=== PATIENT | female | born 1965 | race Caucasian/White ===

== ENCOUNTER → 2020-11-25 | Outpatient (CLI) | payer OTHER ==
[~2020-11-25] MED LIST: CORGARD 40MG TA40 MG PO; COZAAR 50MG TAB50 MG PO; ECOTRIN81 MG PO; GLUCOPHAGE1000 MG PO; HYDROCHLOROTH12.5 MG PO; ICAPS AREDS SO1 EACH PO; LANTUS SOL100 UNIT/1 SQ; LEVAQUIN750 MG PO; OZEMPIC SQ; PROZAC40 MG PO; TRAMADOL HCL50 MG PO
[2020-11-25 13:06] LABS: HEMOGLOBIN 14.7 gm/dl (12.3-15.3); RED BLOOD COUNT 5.16 M/UL (4.00-5.10); WHITE BLOOD COUNT 7.5 K/UL (4.5-11.0)
[2020-11-25 13:31] LABS: BUN/CREATININE RATIO 20 (0-10)
[2020-11-26 09:11] LABS: VITAMIN D, 25-HYDROXY 30.9 ng/mL (30.0-100.0)
[2020-11-26 11:11] LABS: PROGESTERONE 0.1 ng/mL (.); TESTOSTERONE, SERUM 18 ng/dL (3-41); THYROXINE (T4) 7.8 ug/dL (4.5-12.0)
[2020-11-29 20:11] LABS: ESTROGENS, TOTAL 101 pg/mL (.)
== END ==
LOC: LAB 12:17
PROVIDERS: Nurse Practitioner Family
DX: E78.5 Hyperlipidemia, unspecified (principal); E55.9 Vitamin D deficiency, unspecified; R68.89 Other general symptoms and signs; R79.89 Other specified abnormal findings of blood chemistry; R53.83 Other fatigue; R73.09 Other abnormal glucose
CPT/HCPCS: 36415; 80053; 80061; 82672; 83036; 84144; 84403; 84436; 84439; 84443; 84480; 84481; 85027

== ENCOUNTER → 2021-01-22 | Outpatient (CLI) | payer OTHER | LOC: EXRD 08:00 | DX: I99.9 Unspecified disorder of circulatory system (principal); R42 Dizziness and giddiness | CPT/HCPCS: 93979 ==

== ENCOUNTER → 2021-07-28 | Outpatient (CLI) | payer OTHER | LOC: EXRD 10:24 | DX: E07.89 Other specified disorders of thyroid (principal); E04.1 Nontoxic single thyroid nodule | CPT/HCPCS: 76536 ==

== ENCOUNTER → 2021-09-18 | Outpatient (CLI) | payer OTHER | LOC: US 11:12 → EXRD 13:30 | DX: R59.1 Generalized enlarged lymph nodes (principal) | CPT/HCPCS: 76536 ==

== ENCOUNTER → 2021-10-01 | Outpatient (CLI) | payer OTHER ==
[~2021-10-01] MED LIST changes: +NAPROSYN500 MG PO; +ZOFRAN ODT 4 MG4 MG SL
== END ==
LOC: RAD 11:29
DX: B97.21 SARS-associated coronavirus as the cause of diseases classified elsewhere (principal)
CPT/HCPCS: 71046

== ENCOUNTER 2021-10-05 10:37 | Emergency (ER) | payer OTHER ==
[~2021-10-05 10:37] MED LIST changes: -NAPROSYN500 MG PO; -ZOFRAN ODT 4 MG4 MG SL
[2021-10-05 12:02] LABS: HEMOGLOBIN 15.5 gm/dl (12.3-15.3); RED BLOOD COUNT 5.51 M/UL (4.00-5.10); WHITE BLOOD COUNT 5.4 K/UL (4.5-11.0)
[2021-10-05 12:56] LABS: BUN/CREATININE RATIO 16 (0-10)
[2021-10-05] MEDS ORDERED: ZOFRAN ODT 4 MG4 MG SL (13:09)
[2021-10-05] MEDS ORDERED: NAPROSYN500 MG PO (13:10)
== END 2021-10-05 13:17 | disposition home or self-care (01) ==
LOC: ER1 10:37
PROVIDERS: Physician Assistant
DX: M54.50 Low back pain, unspecified (principal); E11.9 Type 2 diabetes mellitus without complications; I10 Essential (primary) hypertension; Z79.899 Other long term (current) drug therapy
CPT/HCPCS: 71045; 80048; 81001; 83605; 85025; 87040; 99284

== ENCOUNTER → 2022-01-26 | Outpatient (CLI) | payer OTHER ==
[~2022-01-26] MED LIST changes: +NAPROSYN500 MG PO; +ZOFRAN ODT 4 MG4 MG SL
[2022-01-26 12:20] LABS: HEMOGLOBIN 15.3 gm/dl (12.3-15.3); RED BLOOD COUNT 5.41 M/UL (4.00-5.10); WHITE BLOOD COUNT 8.9 K/UL (4.5-11.0)
[2022-01-26 12:54] LABS: BUN/CREATININE RATIO 22 (0-10)
== END ==
LOC: LAB 10:49
PROVIDERS: Nurse Practitioner Family
DX: R00.2 Palpitations (principal)
CPT/HCPCS: 36415; 80053; 80061; 83036; 84443; 85025; 93005